=== PATIENT | male | born 1970 | race Two or more races ===

== ENCOUNTER → 2017-02-06 | Outpatient (CLI) | payer OTHER ==
--- NOTE | 2017-02-06 17:04 | REP ---
Clinical: Posterior calf pain. Technique: Real time hurtado scale ultrasound examination using a high frequency transducer. Findings: Directed ultrasound examination along the posterior aspect of the calf at the site of maximal tenderness demonstrates normal subcutaneous tissues and no evidence for fluid collection, mass lesion, or obvious abnormality. Impression: No obvious fluid collection or abnormality appreciated by ultrasound. Signed by Arnav Vargas MD 02/06/2017 04:56 P
== END ==
LOC: M RAD 16:17
PROVIDERS: ATTEND Nurse Practitioner Family
DX: S86.911A Strain of unspecified muscle(s) and tendon(s) at lower leg level, right leg, initial encounter (principal); X58.XXXA Exposure to other specified factors, initial encounter; Y92.89 Other specified places as the place of occurrence of the external cause; Y93.89 Activity, other specified; Y99.8 Other external cause status